=== PATIENT | male | born 1955 | race Hispanic/Latino ===

== ENCOUNTER → 2022-12-08 | Outpatient (CLI) | payer MEDICARE ==
[2022-12-08 11:32] LABS: HEMOGLOBIN A1C 5.4 % (4.0-6.0)
[2022-12-08 11:34] LABS: CHOLESTEROL 185 mg/dL (<200); HDL CHOLESTEROL 38 mg/dL (29-71); LDL DIRECT 124 mg/dL (0-99); TRIGLYCERIDES 172 mg/dL (30-200)
== END | disposition home or self-care (01) ==
LOC: LAB 09:58
PROVIDERS: ATTEND Student in an Organized Health Care Education/Training Program
DX: E78.5 Hyperlipidemia, unspecified (principal); R07.9 Chest pain, unspecified; Z79.899 Other long term (current) drug therapy
CPT/HCPCS: 36415; 80061; 83036

== ENCOUNTER → 2024-03-18 | Outpatient (CLI) | payer MEDICARE ==
[2024-03-18 12:29] LABS: CHOLESTEROL 102 mg/dL (<200); HDL CHOLESTEROL 46 mg/dL (29-71); LDL DIRECT 47 mg/dL (0-99); TRIGLYCERIDES 80 mg/dL (30-200)
== END | disposition home or self-care (01) ==
LOC: LAB 09:19
PROVIDERS: ATTEND Student in an Organized Health Care Education/Training Program
DX: E78.5 Hyperlipidemia, unspecified (principal)
CPT/HCPCS: 36415; 80061